=== PATIENT | female | born 1980 | race Asian ===

== ENCOUNTER 2022-05-09 23:53 | Emergency (ER) | payer OTHER ==
[~2022-05-09] VITALS: Ht 149.9 cm; Wt 77.3 kg
[2022-05-10] MEDS ORDERED: IBUP-2070 PO (00:59)
[2022-05-10] MEDS ORDERED: OxyCODONE HCL/ACETAMINOPHEN 5-325 MG TABLET PO ONE (01:00)
[2022-05-10] MEDS ORDERED: METHOCARBAMOL 500 MG TABLET PO ONE (01:00)
[2022-05-10] MEDS ORDERED: KETOROLAC TROMETHAMINE 60 MG/2 ML VIAL IM ONE (01:00)
[2022-05-10] MEDS ORDERED: METH-812 PO (01:00)
[2022-05-10] MEDS ORDERED: PERCT PO (01:01)
[2022-05-10 01:18] VITALS: BP 129/71
== END 2022-05-10 01:44 | disposition home or self-care (01) ==
LOC: EMS 23:54
DX: S29.012A Strain of muscle and tendon of back wall of thorax, initial encounter (principal); I10 Essential (primary) hypertension; X58.XXXA Exposure to other specified factors, initial encounter; Y93.89 Activity, other specified; Y92.89 Other specified places as the place of occurrence of the external cause; Y99.8 Other external cause status
CPT/HCPCS: 99283; 96372; J1885